=== PATIENT | male | born 1940 | race Caucasian/White ===

== ENCOUNTER → 2017-06-02 | Day surgery (SDC) | payer MEDICARE ==
[~2017-06-02] VITALS: Ht 180.3 cm; Wt 70.5 kg
[~2017-06-02] MED LIST: BRIM0.2S4 EACH EYE; CHLORHEXIDINE GLUCONATE 2 % 1 PACK (2 CLOTHS) TOPICAL PRN; HYALURONIDASE/LIDOCAINE/BUPIVACAINE 5 ML SYR LEFT EYE ONE; LACTATED RINGER'S 1000 ML IV PRN; LATA.005%O EACH EYE; LIDOCAINE HCL 1% PF 30 ML VIAL ONE; METOPROLOL TARTRATE 25 MG TAB PO PRN; MULT-65 PO; POVIDONE IODINE 5% (ANTISEPSIS KIT) 4 APPLICATIONS EACH NARE PRN; PROPARACAINE HCL 0.5% OPHT SOLN 15 ML BTL LEFT EYE ONE; PROPOFOL 200 MG/20 ML AMP ONE; SODIUM CHLORID 0.9% 500 ML IV PRN; TAMS0.4C4 PO; TOBRAMYCIN/DEXAMETHASONE OPTH OINT 3.5 GM TUBE ONE
[2017-06-02] MEDS: PHENYLEPHRINE HCL 10% OPTH SOLN 5 ML BTL LEFT EYE SCH ×4 (08:04→08:19)
[2017-06-02] MEDS: TROPICAMIDE 1% OPHT SOLN 15 ML BTL LEFT EYE SCH ×4 (08:04→08:19)
[2017-06-02] MEDS: FLURBIPROFEN 0.03% OPHT SOLN 2.5 ML BTL LEFT EYE SCH ×4 (08:04→08:19)
[2017-06-02] MEDS: CYCLOPENTOLATE HCL 1% OPHT SOLN 2 ML BTL LEFT EYE SCH ×4 (08:04→08:19)
[2017-06-02 08:05] VITALS: PULSE 63
[2017-06-02 08:42] VITALS: PULSE 63
[2017-06-02 09:42] VITALS: TEMP 97.6
[2017-06-02 10:05] VITALS: BP 129/76; PULSE 56; RESP 14; O2SAT 99
--- NOTE | 2017-06-02 13:06 | MP ---
cc: JAMAAL BEAVERS M.D. [facility] #[id number] DATE OF SURGERY 06/02/2017 PREOPERATIVE DIAGNOSIS Visually significant cataract left eye. POSTOPERATIVE DIAGNOSIS Visually significant cataract left eye. OPERATION Phacoemulsification with posterior chamber lens implantation, left eye. SURGEON Jamaal Beavers MD ANESTHESIA Retrobulbar with MAC. COMPLICATIONS None PROCEDURE After informed consent was obtained, the patient was brought into the operative suite and placed on appropriate monitors by the Anesthesia Service. The patient had received a prior retrobulbar injection of local anesthetic by the Anesthesia Service in the holding area. The patient's operative eye was then prepped and draped in the usual sterile fashion. A wire lid speculum was placed. A paracentesis incision was made in the peripheral cornea with a 1 mm ki keratome. The anterior chamber was filled with viscoelastic. The anterior chamber was then entered through a stepped, clear corneal incision using a sharp 3 mm ki keratome. A circular tear capsulorrhexis was then made with a bent needle cystitome. Following hydrodissection of the lens nucleus with balanced saline, phacoemulsification of the nucleus was performed using a modified chopping technique. The remaining cortex was removed with irrigation/aspiration. The prior two procedures were both performed using the handpieces of the [employer] phaco unit. The capsular bag was then filled with viscoelastic. The intraocular lens was then injected into the capsular bag and positioned. The type of intraocular lens and its power can be found elsewhere in this chart. The remaining viscoelastic was then removed from the anterior chamber with the IA handpiece. The anterior chamber was reformed with balanced saline. The wound was then closed securely with stromal hydration. It was found to be watertight to an intraocular pressure of at least 30 mmHg by palpation. A small amount of balanced salt solution was then removed through the paracentesis site and the intraocular pressure at the end of the case was approximately 20 by palpation. All drapes were then removed. TobraDex ointment was then placed in the eye, which was closed beneath a semi-pressure patch dressing. The patient tolerated this procedure well and left the operating room awake and alert. The patient is to follow-up in my office in the morning. ADDENDUM After the clear-corneal incisions were sealed water tight, a 6 mm limbal relaxing incision was made with a 600 micron ki blade, centered around the 180 degree meridian. MD SUNIL Bolaños/CARLIN /10:45 AM /12:54 PM
== END | disposition home or self-care (01) ==
LOC: PHSDC 07:03
PROVIDERS: ATTEND Optometrist Occupational Vision
DX: H25.812 Combined forms of age-related cataract, left eye (principal)
CPT/HCPCS: 00142; 66984; J7040; V2632

== ENCOUNTER → 2017-12-08 | Outpatient (CLI) | payer MEDICARE ==
[~2017-12-08] VITALS: Ht 180.3 cm; Wt 73.0 kg
[~2017-12-08] MED LIST changes: +CYCLOPENTOLATE HCL 1% OPHT SOLN 2 ML BTL RIGHT EYE SCH; +EPINEPHrine HCL PF/SF (1:1000) 1 MG/ML AMP I-OCULAR ONE; +FLURBIPROFEN 0.03% OPHT SOLN 2.5 ML BTL RIGHT EYE SCH; -HYALURONIDASE/LIDOCAINE/BUPIVACAINE 5 ML SYR LEFT EYE ONE; +HYALURONIDASE/LIDOCAINE/BUPIVACAINE 5 ML SYR RIGHT EYE ONE; +PHENYLEPHRINE HCL 10% OPTH SOLN 5 ML BTL RIGHT EYE SCH; -PROPARACAINE HCL 0.5% OPHT SOLN 15 ML BTL LEFT EYE ONE; +PROPARACAINE HCL 0.5% OPHT SOLN 15 ML BTL RIGHT EYE ONE; +TROPICAMIDE 1% OPHT SOLN 15 ML BTL RIGHT EYE SCH; +VITA100018 PO
[2017-12-08] MEDS: CYCLOPENTOLATE HCL 1% OPHT SOLN 2 ML BTL RIGHT EYE SCH ×4 (07:27→07:42)
[2017-12-08] MEDS: TROPICAMIDE 1% OPHT SOLN 15 ML BTL RIGHT EYE SCH ×4 (07:27→07:42)
[2017-12-08] MEDS: FLURBIPROFEN 0.03% OPHT SOLN 2.5 ML BTL RIGHT EYE SCH ×4 (07:27→07:42)
[2017-12-08] MEDS: PHENYLEPHRINE HCL 10% OPTH SOLN 5 ML BTL RIGHT EYE SCH ×4 (07:27→07:42)
[2017-12-08 07:29] VITALS: PULSE 60
[2017-12-08 07:56] VITALS: PULSE 55
[2017-12-08 09:35] VITALS: BP 120/50; PULSE 50; RESP 16; TEMP 97.6; O2SAT 100
--- NOTE | 2017-12-08 10:39 | MP ---
cc: Jamaal Campbell MD DATE OF OPERATION: 12/08/2017 [facility] # [id number] PREOPERATIVE DIAGNOSIS: Visually significant cataract right eye. POSTOPERATIVE DIAGNOSIS: Visually significant cataract right eye. OPERATION: Phacoemulsification with posterior chamber lens implantation, right eye. SURGEON: Jamaal Campbell MD ANESTHESIA: Retrobulbar with MAC. COMPLICATIONS: None. PROCEDURE: After informed consent was obtained, the patient was brought into the operative suite and placed on appropriate monitors by the Anesthesia Service. The patient had received a prior retrobulbar injection of local anesthetic by the Anesthesia Service in the holding area. The patient's operative eye was then prepped and draped in the usual sterile fashion. A wire lid speculum was placed. A paracentesis incision was made in the peripheral cornea with a 1 mm ki keratome. The anterior chamber was filled with viscoelastic. The anterior chamber was then entered through a stepped, clear corneal incision using a sharp 3 mm ki keratome. A circular tear capsulorrhexis was then made with a bent needle cystitome. Following hydrodissection of the lens nucleus with balanced saline, phaco-emulsification of the nucleus was performed using a modified chopping technique. The remaining cortex was removed with irrigation/aspiration. The prior two procedures were both performed using the handpieces of the [employer] phaco unit. The capsular bag was then filled with viscoelastic. The intraocular lens was then injected into the capsular bag and positioned. The type of intraocular lens and its power can be found elsewhere in this chart. The remaining viscoelastic was then removed from the anterior chamber with the IA handpiece. The anterior chamber was reformed with balanced saline. The wound was then closed securely with stromal hydration. It was found to be watertight to an intraocular pressure of at least 30 mmHg by palpation. A small amount of balanced salt solution was then removed through the paracentesis site and the intraocular pressure at the end of the case was approximately 20 by palpation. All drapes were then removed. TobraDex ointment was then placed in the eye, which was closed beneath a semi-pressure patch dressing. The patient tolerated this procedure well and left the operating room awake and alert. The patient is to follow-up in my office in the morning. MD GREER Bolaños , 10:29 AM , 10:38 AM
== END ==
LOC: PHSDC 06:27
PROVIDERS: ATTEND Optometrist Occupational Vision
DX: H25.811 Combined forms of age-related cataract, right eye (principal); H40.1133 Primary open-angle glaucoma, bilateral, severe stage; H35.373 Puckering of macula, bilateral; H43.813 Vitreous degeneration, bilateral; N18.3 Chronic kidney disease, stage 3 (moderate)
CPT/HCPCS: 00142; 66984; J0171; J7040; V2632